=== PATIENT | male | born 1990 | race Two or more races ===

== ENCOUNTER 2023-09-02 17:21 | Emergency (ER) | payer OTHER ==
[~2023-09-02] VITALS: Ht 177.8 cm; Wt 75.0 kg
[2023-09-02 18:35] LABS: BASOPHILS % (AUTO) 0.2 % (0.0-2.0); EOSINOPHILS % (AUTO) 0.6 % (1.0-6.0); HEMATOCRIT 48.5 % (41-53); HEMOGLOBIN 16.1 g/dL (13.5-17.5); LYMPHOCYTES # (AUTO) 1.2 K/uL (1.0-4.8); LYMPHOCYTES % (AUTO) 12.1 % (22.0-44.0); MEAN CORPUSCULAR HEMOGLOBIN 28.6 pg (26.0-34.0); MEAN CORPUSCULAR HGB CONC 33.1 G/dL (31.0-37.0); MEAN CORPUSCULAR VOLUME 86 fL (80-100); MONOCYTES # (AUTO) 0.4 K/uL (0.1-1.0); MONOCYTES % (AUTO) 4.3 % (2.0-9.0); NEUTROPHILS # (AUTO) 7.9 K/uL (1.8-7.7); NEUTROPHILS % (AUTO) 82.8 % (40.0-70.0); PLATELET COUNT (AUTO) 166 K/uL (150-450); RED BLOOD CELL COUNT(AUTO) 5.62 MIL/uL (4.50-5.90); RED CELL DISTRIBUTION WIDTH 13.4 % (11.5-14.5); WHITE BLOOD COUNT (AUTO) 9.5 K/uL (4.5-11.0)
[2023-09-02 18:36] LABS: ANION GAP 6 mmol/L (8-16); CALCIUM, TOTAL 9.6 mg/dL (8.8-10.5); CARBON DIOXIDE 33 mmol/L (22-29); CHLORIDE 102 mmol/L (98-107); GLOMERULAR FILTR. RATE CALC > 60 mL/min (>60); GLUCOSE,RANDOM 100 mg/dL (70-110); POTASSIUM 4.2 mmol/L (3.5-5.1); SODIUM SERUM 141 mmol/L (136-145); UREA NITROGEN, BLOOD 10 mg/dL (7-18)
[2023-09-02] MEDS ORDERED: TRAZ150T80 PO (18:36)
[2023-09-02] MEDS ORDERED: FLUO-418 PO (18:38)
[2023-09-02] MEDS ORDERED: BUPR-344 PO (18:38)
[2023-09-02] MEDS ORDERED: CLON0.1T2 PO (18:38)
[2023-09-02] MEDS ORDERED: GABA-1216 PO (18:38)
[2023-09-02] MEDS: SODIUM CHLORIDE 0.9% 1,000 ML IV ONE (18:41)
[2023-09-02 18:42] LABS: ALANINE AMINOTRANSFERASE 20 U/L (12-78); ALBUMIN 4.6 g/dL (3.4-5.0); ALKALINE PHOSPHATASE 97 U/L (46-116); ASPARTATE AMINOTRANSFERASE 12 U/L (15-37); BILIRUBIN,TOTAL 0.4 mg/dL (0.1-1.0); TOTAL PROTEIN, SERUM 8.1 g/dL (6.4-8.2)
[2023-09-02 19:09] LABS: ALCOHOL, BLOOD (SERUM) < 3 mg/dL (0-10)
[2023-09-03 00:06] VITALS: BP 127/71; PULSE 68; RESP 16; TEMP 97.3
== END 2023-09-03 00:15 | disposition home or self-care (01) ==
LOC: EMS 17:21
DX: F16.10 Hallucinogen abuse, uncomplicated (principal)
CPT/HCPCS: 99283; 96360; 80053; 85025; 36415; G0480; J7030